=== PATIENT | female | born 1935 | race Caucasian/White ===

== ENCOUNTER → 2016-08-05 | Outpatient (CLI) | payer MEDICARE, MEDICAID ==
[~2016-08-05] MED LIST: ALBU8.5H3 INH; ASPI325T4 PO; CALC-141 PO; CIPR500T3 PO; DILT120C PO; FLUT1DIS3 INH; NYST1000 PO; PRED5TAB PO; TRAM50TA2 PO
== END | disposition home or self-care (01) ==
LOC: CFH 15:01
PROVIDERS: ATTEND Internal Medicine
DX: J44.9 Chronic obstructive pulmonary disease, unspecified (principal); J43.8 Other emphysema; M41.84 Other forms of scoliosis, thoracic region; I77.810 Thoracic aortic ectasia
CPT/HCPCS: 71250

== ENCOUNTER 2018-05-19 01:39 | Inpatient (IN) | payer MEDICARE, MEDICAID ==
[~2018-05-19] VITALS: Ht 172.7 cm; Wt 55.5 kg
[~2018-05-19 01:39] MED LIST changes: -ALBU8.5H3 INH; +ALBU8.5H8 INH; +ASPI325T17 PO; -ASPI325T4 PO; +DILT-8 PO; -DILT120C PO
[2018-05-19] MEDS ORDERED: ALBUTEROL/IPRATROPIUM 2.5MG/0.5MG, 3 ML ONE (01:42)
--- NOTE | 2018-05-19 01:55 | NUR ---
PT REPORTS COUGH X 1 WEEKS, UNABLE TO SLEEP TONIGHT DUE TO INCREASING COUGH. NORMALLY WEARS O2 VAI NC 4L AT HOME, STATES SHE HAS HAD TO TURN IT UP OVER THE LAST FEW DAYS.
--- NOTE | 2018-05-19 02:37 | NUR ---
PT REPORTS "BREATHING EASIER" AFTER RESP TREATMENT. PT ON CONT CARDIAC AND PULSE OX MONITORING. REFUSING IV UNTIL NEEDED/ORDERED BY MD. FAMILY AT BEDSIDE
[2018-05-19 02:40] LABS: ALANINE AMINOTRANSFERASE 45 U/L (12-78); ALBUMIN 2.6 g/dL (3.4-5.0); ANION GAP 9 mmol/L (5-15); CHLORIDE 102 mmol/L (98-107); CREATININE 0.92 mg/dL (0.55-1.02)
[2018-05-19 02:45] LABS: ALKALINE PHOSPHATASE 61 U/L (45-117); BILIRUBIN,TOTAL 1.5 mg/dL (0.2-1.0); TOTAL PROTEIN 6.7 g/dL (6.4-8.2); TROPONIN I < 0.015 ng/mL (0.000-0.045)
--- NOTE | 2018-05-19 02:49 | NUR ---
PT REPORTS RECENT FALL OF TOILET THE OTHER DAY, DENIES ANY RADIOLOGY EXAMS SINCE, PT STATES SHE HAS BEEN UNABLE TO SIT AND WALK, MD AWARE, X RAYS ORDERED.
[2018-05-19 02:50] LABS: RAPID INFLUENZA A Negative (Negative); RAPID INFLUENZA B Negative (Negative)
[2018-05-19 03:01] LABS: MD YES; MEAN CORPUSCULAR HEMOGLOBIN 36.9 pg (27.0-34.8); MEAN CORPUSCULAR HGB CONC 33.7 g/dL (32.4-35.8); MEAN CORPUSCULAR VOLUME 109.5 fL (80-100); MEAN PLATELET VOLUME 11.9 fL (7.4-10.4); PLATELET COUNT 218 x10^3/uL (130-400); RED BLOOD COUNT 2.47 x10^6/uL (3.82-5.3); RED CELL DISTRIBUTION WIDTH 14.4 % (9.6-15.2)
[2018-05-19 03:06] LABS: ANISOCYTOSIS 1+; BAND#(MANUAL) 0.21 x10^3/uL; BANDS%(MANUAL) 2 % (0-7); LYMPH#(MANUAL) 0.95 x10^3/uL (1-3.4); LYMPHS% (MANUAL) 9 % (22-44); MONOS#(MANUAL) 0.85 x10^3/uL (0.3-2.7); MONOS% (MANUAL) 8 % (2-9); POLYCHROMASIA 1+; REACTIVE LYMPHS # (MANUAL) 0.11 x10^3/uL (0-0); REACTIVE LYMPHS % (MANUAL) 1 % (0-0); SEG#(MANUAL) 8.48 x10^3/uL (1.8-6.8); SEGS% (MANUAL) 80 % (42-75); TOXIC GRAN 1+
[2018-05-19 03:07] LABS: <PLATELET ESTIMATE> ADEQUATE; LARGE PLATELETS 1+
[2018-05-19] MEDS ORDERED: ONDANSETRON 2MG/ML, 2ML IVPush PRN (03:30)
--- NOTE | 2018-05-19 03:31 | NUR ---
IN FOR RECHECK, PT AGREES TO POC (ADMIT), DENIES ANY NEEDS/CONCERNS
[2018-05-19] MEDS ORDERED: DILTIAZEM 60 MG TABLET ONE (03:49)
--- NOTE | 2018-05-19 03:58 | NUR ---
PER PHARMACY OK TO PUT DOXYCYCLINE AND K CL IN SAME IV.
[2018-05-19] MEDS ORDERED: ALBUTEROL SULFATE 2.5 MG/3 ML NPPB PRN (04:00)
[2018-05-19] MEDS ORDERED: methylPREDNISolone SOD SUCC 125 MG/2 ML ONE ×2 (04:00→04:01)
[2018-05-19] MEDS ORDERED: LABETALOL 5MG/ML, 20ML IVPush PRN (04:00)
[2018-05-19] MEDS ORDERED: POTASSIUM CHLORIDE 40 MEQ in SODIUM CHLORIDE 0.9% 500 ML IV ONE (04:00)
[2018-05-19] MEDS ORDERED: BISACODYL 10 MG SUPP PR PRN (04:00)
[2018-05-19] MEDS ORDERED: CYCLOBENZAPRINE 10 MG TABLET PO PRN (04:00)
[2018-05-19] MEDS ORDERED: hydrALAzine 20 MG/ML, 1ML IVPush PRN (04:00)
[2018-05-19] MEDS ORDERED: DILTIAZEM HCL 120 MG PO SCH (04:00)
[2018-05-19] MEDS ORDERED: GABAPENTIN 300 MG CAPSULE PO PRN (04:00)
[2018-05-19] MEDS ORDERED: DOCUSATE 100 MG CAPSULE PO PRN (04:00)
[2018-05-19] MEDS ORDERED: POLYETHYLENE GLYCOL 17 GM PACKET PO PRN (04:00)
[2018-05-19] MEDS: methylPREDNISolone SOD SUCC 125 MG/2 ML IVPush SCH ×4 (04:09→22:35)
--- NOTE | 2018-05-19 04:17 | NUR ---
MEDS ORDERED FROM PHARMACY
--- NOTE | 2018-05-19 04:41 | NUR ---
REPORT TO MARIANNA MEDRANO. PT READY FOR TRANSPORT.
[2018-05-19 04:51] LABS: FREE T4 (FREE THYROXINE) 1.3 ng/dL (0.76-1.46); THYROID STIMULATING HORMONE 1.34 mIU/L (0.358-3.740)
[2018-05-19] MEDS: DILTIAZEM 120 MG CAP.ER.24H PO SCH (04:56)
[2018-05-19] MEDS: BUDESONIDE 0.5 MG/2 ML INHA NPPB SCH ×2 (05:00→20:00)
[2018-05-19] MEDS ORDERED: LABETALOL 20 MG/4 ML IVPush PRN (05:00)
[2018-05-19 05:08] LABS: HEMOGLOBIN A1C 4.7 % (4.2-6.3)
[2018-05-19] MEDS: HEPARIN 5,000 UNITS/ML, 1ML SQ SCH ×3 (05:14→20:33)
[2018-05-19 05:17] VITALS: BP 109/61
[2018-05-19] MEDS: DOXYCYCLINE 100 MG in DEXTROSE 5% 250 ML IV SCH ×2 (05:25→16:15)
[2018-05-19] MEDS: ACETAMINOPHEN 325 MG TABLET PO PRN ×2 (05:26→22:35)
[2018-05-19 06:27] VITALS: BP 103/56
[2018-05-19 08:49] LABS: ALBUMIN 2.6 g/dL (3.4-5.0); ANION GAP 10 mmol/L (5-15); CALCIUM 7.7 mg/dL (8.5-10.1); CHLORIDE 102 mmol/L (98-107); CREATININE 0.85 mg/dL (0.55-1.02)
[2018-05-19 08:51] LABS: ALANINE AMINOTRANSFERASE 41 U/L (12-78); ALKALINE PHOSPHATASE 61 U/L (45-117); BILIRUBIN,TOTAL 1.5 mg/dL (0.2-1.0); TOTAL PROTEIN 6.6 g/dL (6.4-8.2)
[2018-05-19] MEDS ORDERED: TEMPLATE NON-FORMULARY MED. (Fluticasone/Salmeterol** (Advair 250-50 Diskus**) 1 PUFF) INH SCH (09:00)
[2018-05-19] MEDS: ALBUTEROL SULFATE 2.5 MG/3 ML NPPB SCH ×2 (09:00→20:00)
[2018-05-19 12:29] VITALS: BP 106/56
[2018-05-19 20:17] VITALS: BP 136/71
[2018-05-19] MEDS: GUAIFENESIN ER 600 MG TABLET PO SCH (20:33)
[2018-05-20 02:12] VITALS: BP 118/62
[2018-05-20] MEDS: methylPREDNISolone SOD SUCC 125 MG/2 ML IVPush SCH ×2 (04:13→09:43)
[2018-05-20] MEDS: HEPARIN 5,000 UNITS/ML, 1ML SQ SCH ×2 (04:13→12:00)
[2018-05-20] MEDS: DOXYCYCLINE 100 MG in DEXTROSE 5% 250 ML IV SCH (04:16)
[2018-05-20] MEDS: DILTIAZEM 120 MG CAP.ER.24H PO SCH (04:25)
[2018-05-20 05:24] LABS: CHLORIDE 108 mmol/L (98-107)
[2018-05-20 05:29] LABS: ALANINE AMINOTRANSFERASE 40 U/L (12-78); ALBUMIN 2.4 g/dL (3.4-5.0); ALKALINE PHOSPHATASE 56 U/L (45-117); ANION GAP 7 mmol/L (5-15); BILIRUBIN,TOTAL 0.6 mg/dL (0.2-1.0); CALCIUM 8.2 mg/dL (8.5-10.1); CHOL/HDL RATIO 2.7; CHOLESTEROL, TOTAL 83 mg/dL (140-239); CREATININE 0.81 mg/dL (0.55-1.02); HDL CHOL % 37 % (28-40); HDL CHOLESTEROL (DIRECT) 31 mg/dL (40-60); LDL CHOLESTEROL,CALCULATED 37 mg/dL (54-169); LDL/HDL RATIO 1.2 (0.5-3.0); TOTAL PROTEIN 6.5 g/dL (6.4-8.2); TRIGLYCERIDES 74 mg/dL (50-200); VLDL CHOLESTEROL 15 mg/dL (0-25)
[2018-05-20 05:58] LABS: MD YES; MEAN CORPUSCULAR HEMOGLOBIN 37.3 pg (27.0-34.8); MEAN CORPUSCULAR HGB CONC 33.7 g/dL (32.4-35.8); MEAN CORPUSCULAR VOLUME 110.8 fL (80-100); MEAN PLATELET VOLUME 12.4 fL (7.4-10.4); PLATELET COUNT 195 x10^3/uL (130-400); RED BLOOD COUNT 2.22 x10^6/uL (3.82-5.3); RED CELL DISTRIBUTION WIDTH 14.4 % (9.6-15.2)
[2018-05-20 06:01] LABS: ANISOCYTOSIS 1+; BAND#(MANUAL) 0.17 x10^3/uL; BANDS%(MANUAL) 2 % (0-7); LYMPH#(MANUAL) 0.42 x10^3/uL (1-3.4); LYMPHS% (MANUAL) 5 % (22-44); METAMYELOCYTES# (MANUAL) 0.08 x10^3/uL (0-0); METAMYELOCYTES% (MANUAL) 1 % (0-1); MONOS#(MANUAL) 0.25 x10^3/uL (0.3-2.7); MONOS% (MANUAL) 3 % (2-9); POLYCHROMASIA 1+; SEG#(MANUAL) 7.48 x10^3/uL (1.8-6.8); SEGS% (MANUAL) 89 % (42-75); TOXIC GRAN 1+
[2018-05-20 06:02] LABS: <PLATELET ESTIMATE> ADEQUATE; LARGE PLATELETS 1+
[2018-05-20 06:48] VITALS: BP 114/63
[2018-05-20] MEDS: BUDESONIDE 0.5 MG/2 ML INHA NPPB SCH (08:23)
[2018-05-20] MEDS: ALBUTEROL SULFATE 2.5 MG/3 ML NPPB SCH (08:23)
[2018-05-20] MEDS: GUAIFENESIN ER 600 MG TABLET PO SCH (08:41)
[2018-05-20] MEDS ORDERED: PRED20TA PO (11:41)
[2018-05-20] MEDS ORDERED: DOXY100T PO (11:41)
[2018-05-20] MEDS ORDERED: CEFD300C37 PO (11:41)
[2018-05-20] MEDS ORDERED: GUAI600T31 PO (11:41)
[2018-05-20 12:17] VITALS: BP 125/65
== END 2018-05-20 13:10 | disposition home health service (06) | DRG 189 ==
LOC: ED 03:04 → EDIP 03:30 → 5SO 04:54
PROVIDERS: ADMIT Internal Medicine; ATTEND Internal Medicine
DX: J96.21 Acute and chronic respiratory failure with hypoxia (principal); D68.69 Other thrombophilia; E44.0 Moderate protein-calorie malnutrition; Z68.1 Body mass index [BMI] 19.9 or less, adult; J44.1 Chronic obstructive pulmonary disease with (acute) exacerbation; D50.9 Iron deficiency anemia, unspecified; E87.6 Hypokalemia; I11.9 Hypertensive heart disease without heart failure; M41.9 Scoliosis, unspecified; M47.812 Spondylosis without myelopathy or radiculopathy, cervical region; M47.816 Spondylosis without myelopathy or radiculopathy, lumbar region; M81.0 Age-related osteoporosis without current pathological fracture; Z87.891 Personal history of nicotine dependence; Z90.710 Acquired absence of both cervix and uterus; Z90.49 Acquired absence of other specified parts of digestive tract; Z88.0 Allergy status to penicillin; Z88.2 Allergy status to sulfonamides
CPT/HCPCS: 36415; 71045; 72110; 72220; 80053; 80061; 82306; 82607; 83036; 83605; 83735; 83880; 84145; 84439; 84443; 84484; 85025; 87040; 87400; 93005; 94640; 99285; G0378; J1644; J3480; J7060; J7613; J7626; J2930; J7040